=== PATIENT | female | born 1995 | race Caucasian/White ===

== ENCOUNTER 2019-06-14 23:25 | Emergency (ER) | payer OTHER ==
[~2019-06-14] VITALS: Ht 162.6 cm; Wt 61.4 kg
[2019-06-14] MEDS ORDERED: TRI-TAB16 PO (23:31)
[2019-06-15] MEDS ORDERED: KETOROLAC 30 MG/ML VIAL (J1885) IV ONE
[2019-06-15] MEDS ORDERED: NS 1,000 ML IV ONE
[2019-06-15] MEDS ORDERED: ONDANSETRON 4MG/2ML VIAL (J2405) IV ONE
[2019-06-15 00:21] LABS: BASO % 0.2 % (0.0-1.0); HEMOGLOBIN 13.1 g/dl (12.0-15.5); LYMPH % 9.2 % (24.0-44.0); MEAN CORPUSCULAR HEMOGLOBIN 30.8 pg (27.0-33.0); MEAN CORPUSCULAR HGB CONC 34.5 g/dl (32.0-36.5); MEAN CORPUSCULAR VOLUME 89.2 fl (80.0-96.0); MONO # 0.3 10^3/uL (0.0-0.8); NEUTROPHILS # 9.8 10^3/uL (1.5-8.5); NEUTROPHILS % 87.3 % (36.0-66.0); PLATELET COUNT, AUTOMATED 354 10^3/uL (150-450); RED BLOOD COUNT 4.26 10^6/uL (4.00-5.40); WHITE BLOOD COUNT 11.3 10^3/uL (4.0-10.0)
[2019-06-15 00:33] LABS: BLOOD UREA NITROGEN 12 MG/DL (7-18); CALCIUM LEVEL 9.6 MG/DL (8.5-10.1); CARBON DIOXIDE LEVEL 23 MEQ/L (21-32); CHLORIDE LEVEL 102 MEQ/L (98-107); CREATININE FOR GFR 0.86 MG/DL (0.55-1.30); GLOMERULAR FILTRATION RATE > 60.0 (>60); GLUCOSE, FASTING 139 MG/DL (70-100); POTASSIUM SERUM 4.1 MEQ/L (3.5-5.1); SODIUM LEVEL 133 MEQ/L (136-145)
--- NOTE | 2019-06-15 01:17 | REPVR ---
PROCEDURE INFORMATION: Exam: US Pelvis Complete, Transabdominal and US Pelvis, Transvaginal Exam date and time: 06/15/2019 12:56 AM Age: 24 years old Clinical indication: Abdominal pain and pelvic pain; Left lower quadrant; Additional info: Left lower quadrant pain TECHNIQUE: Imaging protocol: Real-time transabdominal and transvaginal pelvic ultrasound (complete) with image documentation. Transvaginal imaging was used for better evaluation of the endometrium and adnexa. COMPARISON: No relevant prior studies available. FINDINGS: Uterus/cervix: Uterus measures 7.1 x 2.8 x 4.7 cm. Endometrial stripe measures 5.1 mm in thickness. No masses. Right adnexa: Right ovary measures 3.0 x 2.0 x 3.1 cm. Echogenic lesion in the right ovary measuring 12.2 x 1.1 x 1.1 cm. Normal vascular flow on color Doppler in the ovary. Left adnexa: Left ovary measures 8.7 x 6.1 x 8.6 cm. Anechoic cystic lesion in the left ovary measuring 8 x 6 x 8 cm. No solid components evident. Normal vascular flow on color Doppler in the ovary. Free fluid: Small fluid in the cul-de-sac. Bladder: Bladder is decompressed. IMPRESSION: 1. Cystic lesion in the left ovary. Recommend routine further imaging (eg. MRI) or surgical evaluation. 2. Echogenic lesion in the right ovary. Possible dermoid or hemorrhagic cyst. Recommend routine follow-up CT or MRI. 3. Unremarkable uterus. Electronically signed by: Roland Sanchez On 06/15/2019 01:16:48 AM
--- NOTE | 2019-06-15 01:17 | REPVR ---
PROCEDURE INFORMATION: Exam: US Retroperitoneal Complete, Kidneys and Bladder. Exam date and time: 06/15/2019 12:55 AM Age: 24 years old Clinical indication: Abdominal pain; Flank; Left; Additional info: Left renal colic TECHNIQUE: Imaging protocol: Real-time ultrasound of the retroperitoneum with image documentation. Complete exam focused on the kidneys and bladder. COMPARISON: No relevant prior studies available. FINDINGS: Right kidney: Right kidney measures 10.4 cm in length. No right hydronephrosis. No masses. Left kidney: Left kidney measures 10.0 cm in length. No left hydronephrosis. No masses. Bladder: Bladder is unremarkable. IMPRESSION: 1. Unremarkable retroperitoneal ultrasound. 2. See also pelvic ultrasound report. Electronically signed by: Roland Sanchez On 06/15/2019 01:17:08 AM
[2019-06-15] MEDS ORDERED: MORPHINE 4 MG/ML 1ML VIAL/SYRINGE (J2270) IV ONE (01:30)
[2019-06-15] MEDS ORDERED: ONDA4TAB6 PO (01:44)
[2019-06-15] MEDS ORDERED: IBUP-1022 PO (01:44)
[2019-06-15] MEDS ORDERED: NORC1TAB7 PO (01:44)
[2019-06-15] MEDS ORDERED: NORCO 5/325MG TABLET (BULK FOR ED) PO ONE (01:45)
[2019-06-15 01:46] VITALS: BP 142/85
--- NOTE | 2019-06-15 15:42 | ED PDOC ---
Post-Departure Follow-Up dr valles faxed formal reprot of pelvic us for fu Ozzie Rayo MD Jun 15, 2019 15:42
== END 2019-06-15 02:02 | disposition home or self-care (01) ==
LOC: M ED 23:25
DX: N83.292 Other ovarian cyst, left side (principal); N83.291 Other ovarian cyst, right side; Z79.3 Long term (current) use of hormonal contraceptives
CPT/HCPCS: 76775; 76830; 76856; 80048; 81001; 84702; 85025; 87086; 93976; 96361; 96374; 96375; 99284; J1885; J2270; J2405

== ENCOUNTER → 2019-06-21 | Outpatient (REF) | payer OTHER ==
[~2019-06-21] MED LIST: IBUP-1022 PO; NORC1TAB7 PO; ONDA4TAB6 PO; TRI-TAB16 PO
[2019-06-21 16:11] LABS: CHLAMYDIA DNA AMPLIFICATION NEGATIVE (NEGATIVE); GC DNA AMPLIFICATION NEGATIVE (NEGATIVE)
== END ==
LOC: M SFHCWAGY 13:39
PROVIDERS: ATTEND Obstetrics & Gynecology
DX: R10.2 Pelvic and perineal pain (principal)

== ENCOUNTER → 2019-08-09 | Outpatient (CLI) | payer OTHER ==
--- NOTE | 2019-08-10 04:03 | REP ---
Clinical: Left ovarian cyst. Comparison: 06/15/2019. Technique: Transabdominal pelvic ultrasound with color Doppler evaluation of the ovaries. Findings: Bladder is normal and measures approximately 10.8 x 10.5 x 6.5 cm. Normal anteverted uterus measures 7.5 x 2.7 x 4.4 cm. Endometrial complex measures 2.8 mm thickness. Right ovary measures 3.4 x 1.4 x 2.5 cm (RI 0.54) and includes 1.2 cm rounded echogenic focus which may represent hemorrhagic cyst or dermoid. Simple appearing left adnexal cyst measures 8.8 x 8.1 x 6.2 cm and may be slightly increased in size from prior examination. New presumed adjacent left ovary measures approximately 1.7 x 0.7 x 2.2 cm (RI 0.56). No pelvic fluid. Impression: 1. Normal uterus. 2. Stable 1.2 cm echogenic focus in the right ovary may represent hemorrhagic cyst or dermoid. 3. Simple left adnexal cyst relatively unchanged when allowing for variation in technique, but possibly slightly increased in size from prior examination.
== END ==
LOC: M WHC 08:05
PROVIDERS: ATTEND Obstetrics & Gynecology
DX: N83.292 Other ovarian cyst, left side (principal); N83.8 Other noninflammatory disorders of ovary, fallopian tube and broad ligament

== ENCOUNTER → 2019-11-18 | Outpatient (CLI) | payer OTHER ==
--- NOTE | 2019-11-28 17:20 | REP ---
PELVIC ULTRASOUND CLINICAL: Follow-up ovarian cyst. TECHNIQUE: Transabdominal pelvic ultrasound followed by transvaginal examination for better evaluation of the endometrium and adnexa with color Doppler evaluation of the ovaries. COMPARISON: 08/09/2019. FINDINGS: Relatively normal anteverted uterus measures 6.2 x 2.8 x 3.8 cm. The endometrial complex measures 3 mm thickness. No discrete uterine or endometrial abnormality identified. Bladder is normal and measures 8.3 x 4.8 x 10.4 cm. The right ovary measures 3.8 x 2.0 x 1.5 cm (RI 0.50) and again includes a 1.2 cm echogenic focus, which may represent small dermoid. A normal left ovary is not visualized and a complex cystic structure in the left adnexa with layering debris is again appreciated and essentially unchanged, currently measuring 8.8 x 6.2 x 9.5 cm (previously measuring 8.8 x 8.1 x 6.2 cm). Small amount of free fluid noted in the posterior cul-de-sac is nonspecific. IMPRESSION: Essentially no change in the right ovarian hyperechoic structure and left adnexa, complex cyst. MTDD
== END ==
LOC: M WHC 09:02
PROVIDERS: ATTEND Nurse Practitioner Women's Health
DX: Z87.42 Personal history of other diseases of the female genital tract (principal)

== ENCOUNTER → 2020-01-17 | Outpatient (REF) | payer OTHER ==
[2020-01-20 15:09] LABS: HE4 36.1 pmol/L (0.0-61.2)
== END ==
LOC: M PLALAB 15:36
PROVIDERS: ATTEND Obstetrics & Gynecology
DX: N83.202 Unspecified ovarian cyst, left side (principal)

== ENCOUNTER → 2020-01-31 | Outpatient (CLI) | payer OTHER ==
--- NOTE | 2020-01-31 08:02 | REP ---
INDICATION: [id number] OVARIAN CYST,LT COMPARISON: 11/18/2019 TECHNIQUE: Transabdominal pelvic ultrasound followed by transvaginal examination for better evaluation of the endometrium and adnexa with color Doppler evaluation of the ovaries. FINDINGS: Bladder is incompletely distended Normal anteverted uterus measures 6.2 x 2.7 x 3.6 cm. The endometrial complex measures 3.0 mm thickness. No discrete uterine or endometrial abnormalities are appreciated. Right ovary measures 3.7 x 2.4 x 1.5 cm (RI 0.47) and includes 1.2 x 1.2 x 1.0 cm hyperechoic focus unchanged from prior examination and possibly reflecting teratoma. Left ovary is not identifiable and the complex cystic lesion with internal debris is unchanged measuring approximately 9.8 x 9.0 x 6.6 cm. No pelvic free fluid identified. IMPRESSION: 1. Large left adnexal complex cyst unchanged. Differential diagnosis includes but is not limited to cystadenoma and abnormal physiologic cyst. Hyperechoic focus within the right ovary unchanged and may represent a teratoma. Consider pelvic MRI for further investigation. <Electronically signed by Tejinder Pereira > 01/31/20 [id number]
== END ==
LOC: M WHC 06:27
PROVIDERS: ATTEND Obstetrics & Gynecology
DX: N83.202 Unspecified ovarian cyst, left side (principal)

== ENCOUNTER → 2020-02-09 | Outpatient (CLI) | payer OTHER ==
[~2020-02-09] MED LIST changes: +COLA100C5 PO; +IBUP1TAB7 PO; +MULTCAP PO; +PERC5TAB12 PO; +VITA-243 PO
== END ==
LOC: M LABSMTC 14:41
PROVIDERS: ATTEND Anesthesiology
DX: Z01.812 Encounter for preprocedural laboratory examination (principal); Z20.828 Contact with and (suspected) exposure to other viral communicable diseases

== ENCOUNTER 2020-02-14 08:33 | Day surgery (SDC) | payer OTHER ==
[~2020-02-14] VITALS: Ht 165.1 cm; Wt 65.2 kg
[~2020-02-14 08:33] MED LIST changes: -COLA100C5 PO; -IBUP1TAB7 PO; +LIDOCAINE 2% 100MG/5ML SDV (FOR ANES.) As Ordered ONE; +LR 1,000 ML IV ONE; +MIDAZOLAM INJ 2MG/2ML VIAL (J2250 PER 1MG) As Ordered ONE; -PERC5TAB12 PO; +ROCURONIUM BROMIDE 50 MG/5 ML VIAL As Ordered ONE; +fentaNYL 250 MCG/5 ML INJECTION (J3010) As Ordered ONE; +propofoL 200 MG/20 ML VIAL As Ordered ONE
[2020-02-14 09:23] LABS: HEMATOCRIT 40.7 % (36.0-47.0); HEMOGLOBIN 13.5 g/dl (12.0-15.5); MEAN CORPUSCULAR VOLUME 93.1 fl (80.0-96.0); RED BLOOD COUNT 4.37 10^6/uL (4.00-5.40); WHITE BLOOD COUNT 9.9 10^3/uL (4.0-10.0)
[2020-02-14 09:24] LABS: MEAN CORPUSCULAR HEMOGLOBIN 30.9 pg (27.0-33.0); MEAN CORPUSCULAR HGB CONC 33.2 g/dl (32.0-36.5); PLATELET COUNT, AUTOMATED 390 10^3/uL (150-450)
[2020-02-14 09:41] LABS: HCG, SERUM QUALITATIVE NEGATIVE (NEGATIVE)
[2020-02-14] MEDS ORDERED: BUPIVACAINE HCL 0.25% 30ML VIAL As Ordered ONE (09:49)
[2020-02-14] MEDS ORDERED: dexameTHASONE 4 MG/ML 1ML VIAL (J1100 PER 1MG) As Ordered ONE (10:12)
[2020-02-14] MEDS ORDERED: METOCLOPRAMIDE INJ 10MG/2ML VIAL (J2765 PER 1) As Ordered ONE (10:25)
[2020-02-14] MEDS ORDERED: ONDANSETRON 4MG/2ML VIAL As Ordered ONE (10:25)
[2020-02-14] MEDS ORDERED: KETOROLAC 60MG 2ML VIAL As Ordered ONE (10:25)
[2020-02-14] MEDS ORDERED: HYDROmorphone HCL 2 MG/ML 1ML VIAL (J1170) As Ordered ONE (10:26)
[2020-02-14] MEDS ORDERED: ACETAMINOPHEN 1000MG 100ML IV BTL (OFIRMEV) (J0131 PER 10MG) As Ordered ONE (10:26)
[2020-02-14] MEDS ORDERED: ROCURONIUM BROMIDE 50 MG/5 ML VIAL As Ordered ONE (11:36)
[2020-02-14] MEDS ORDERED: oxyCODONE 5MG TAB PO PRN (13:15)
[2020-02-14] MEDS ORDERED: LR 1,000 ML IV SCH ×2 (13:15)
[2020-02-14] MEDS ORDERED: ONDANSETRON 4MG/2ML VIAL IV PRN (13:15)
[2020-02-14] MEDS ORDERED: fentaNYL 100 MCG/2 ML INJECTION (J3010) IV PRN (13:15)
--- NOTE | 2020-02-14 13:43 | ROOPDOC ---
[facility] Report Of Operation Report of Operation DATE OF PROCEDURE: 02/14/2020 PREPROCEDURE DIAGNOSES: Persistent large left adnexal cyst, complex POSTPROCEDURE DIAGNOSES: Large 10 cm left ovarian cyst, right 3 cm ovarian cyst PROCEDURE: Robotic-assisted laparoscopic left ovarian cystectomy and right ovarian cystectomy SURGEON: Napoleon Waters D.O. FACOG PREFABRICATOR: Karolyn Anna ANESTHESIA: General endotracheal. ESTIMATED BLOOD LOSS: Approximately 10 mL. FLUIDS REPLACED: 1150 mL LR URINE OUTPUT: 200 mL COMPLICATIONS: None. FINDINGS: Left ovarian cyst was well demarcated, well-circumscribed, mobile and approximately 10 cm in greatest dimension. Right ovarian cyst was well demarcated, well-circumscribed, mobile and approximately 3 cm in greatest dimension. Uterus was approximately 8 centimeters in greatest dimension. PREOPERATIVE ANTIBIOTIC PROPHYLAXIS: None indicated SPECIMEN(S): 1. Left ovarian cyst wall. 2. Right ovarian cyst wall DESCRIPTION OF PROCEDURE: The patient was counseled, consented on the respective benefits, indications, alternatives of procedure. Informed consent was obtained. She was taken to the operating room with an IV running. She was placed on the operating table in dorsal supine position. Gen. anesthesia was administered and the airway was secured without any difficulty. She was placed in the low lithotomy position. . She was prepared and draped in the normal sterile fashion. A time out was performed per protocol. A Grissom catheter was placed under sterile conditions. A sterile speculum was placed resulting in good visualization of the cervix. A single-tooth tenaculum was used to grasp the anterior lip cervix. The cervix was sequentially dilated with Johnny dilators. A ZUMI uterine manipulator was placed without any difficulty. The single-tooth tenaculum was removed, as well as the speculum. A sterile glove switch was performed. Attention was turned to the abdomen. A 5mm incision was made in the umbilicus, and through this incision a Veress needle was inserted into the intraperitoneal cavity. Intraperitoneal placement was confirmed with ease of flow of normal saline, positive drop test, no return on aspiration, and an opening pressure of less than 10 mmHg upon initial insufflation. The abdomen was insufflated with 2 L of gas. The Veress needle was removed. Through this incision, the robotic trochar/cannula was inserted into the intraperitoneal cavity under direct visualization. No incidental bleeding nor injury was noted. Patient was placed in 30 Trendelenburg. The right and left trocars/cannulas were placed on both the right and left side through 8 mm incisions, guided by laparoscopic visualization. No incidental bleeding nor injury was noted. The robot was docked in typical fashion. The instruments were inserted, guided by laparoscopic visualization. My attention was turned to the robotic console. The left ovary was noted to be mobile. The interface between normal ovarian cortex and cystic wall was delineated. The monopolar milton were used to create an incision over the cortical surface of the ovary. The underlying cystic wall was identified. Usi ng both blunt dissection and electrocautery, the ovarian cyst was detached from the ovary intact. The ovarian cyst was decompressed through a small incision and use of the suction real estate associate to remove the cystic fluid. The mass was then placed into a specimen bag within the peritoneal cavity. The remaining left ovarian cortex was reapproximated with 2-0 V lock suture. Excellent hemostasis was noted. Attention was turned to the right ovary. The right ovary exhibited a cystic mass, greatest dimension, 3-4 cm. This was also smooth wall, well- circumscribed, mobile mass. The interface between the cortical surface and the cyst was delineated. An incision along the interface was made with monopolar milton. The ovarian cyst was then dissected off with both blunt and electrocautery dissection. The removed right cystic wall was taken out through the 8 mm administrative assistant front desk port. Incidental rupture did occur. The area along the right ovary that contained the cyst was hemostatic, and not in need of any reapproximation. Nasrin was placed over the right and left ovary to ensure hemostasis. Through the accessory administrative assistant front desk port, the fascia was extended with Barbra forceps. The specimen bag was brought through this incision along with the specimen/left ovarian cystic wall. The fascia at this incision was closed with 0 Vicryl using the Jhonny-Lou technique. The instruments were removed from the abdomen and the robot was un-docked. The gas was released from the abdomen and the patient was taken out of Trendelenbu rg. The da Misha cannulas were removed. The skin incisions were closed with 4-0 Monocryl in subcuticular fashion. Sponge, needle and instrument counts were correct per protocol. The patient tolerated the entire procedure very well. The Grissom catheter in the ZUMI uterine manipulator were removed . She was transferred to the PACU in good and stable condition. Napoleon R. DO PADMAJA Waters JONATHAN R. DO Feb 14, 2020 13:43
[2020-02-14] MEDS ORDERED: IBUP1TAB7 PO (13:44)
[2020-02-14] MEDS ORDERED: PERC5TAB12 PO (13:45)
[2020-02-14] MEDS ORDERED: COLA100C5 PO (13:48)
[2020-02-14 15:25] VITALS: BP 121/73
== END 2020-02-14 15:40 | disposition home or self-care (01) ==
LOC: M SDC 08:33
PROVIDERS: ATTEND Obstetrics & Gynecology
DX: D27.1 Benign neoplasm of left ovary (principal); N83.01 Follicular cyst of right ovary; Z79.3 Long term (current) use of hormonal contraceptives
CPT/HCPCS: 36415; 58662; 84703; 85027; 86850; 86900; 86901; 88305; J0131; J1100; J1170; J1885; J2250; J2405; J2765; J3010; S2900

== ENCOUNTER → 2021-01-12 | Outpatient (REF) | payer OTHER, BC ==
[~2021-01-12] MED LIST changes: +COLA100C5 PO; +IBUP1TAB7 PO; -LIDOCAINE 2% 100MG/5ML SDV (FOR ANES.) As Ordered ONE; -LR 1,000 ML IV ONE; -MIDAZOLAM INJ 2MG/2ML VIAL (J2250 PER 1MG) As Ordered ONE; +PERC5TAB12 PO; -ROCURONIUM BROMIDE 50 MG/5 ML VIAL As Ordered ONE; -fentaNYL 250 MCG/5 ML INJECTION (J3010) As Ordered ONE; -propofoL 200 MG/20 ML VIAL As Ordered ONE
[2021-01-12 19:33] LABS: GC DNA AMPLIFICATION NEGATIVE (NEGATIVE)
== END ==
LOC: M SFHCWAGY 16:51
PROVIDERS: ATTEND Obstetrics & Gynecology
DX: Z12.4 Encounter for screening for malignant neoplasm of cervix (principal)
CPT/HCPCS: 87491; 87591; 87624; 87661; G0123

== ENCOUNTER → 2022-06-18 | Outpatient (REF) | payer OTHER | LOC: M SFHCWAGY 13:11 | PROVIDERS: ATTEND Obstetrics & Gynecology | DX: Z12.4 Encounter for screening for malignant neoplasm of cervix (principal) | CPT/HCPCS: 87624; G0123 ==

== ENCOUNTER → 2022-06-24 | Outpatient (REF) | payer OTHER ==
[2022-06-25 12:45] LABS: APPEARANCE, URINE HAZY (CLEAR); BACTERIA, URINE AUTO 1+ (NEGATIVE); BILIRUBIN, URINE AUTO NEGATIVE (NEGATIVE); BLOOD, URINE BLOOD 2+ (NEGATIVE); COLOR, URINE YELLOW (YELLOW); GLUCOSE, URINE (UA) AUTO NEGATIVE (NEGATIVE); KETONE, URINE AUTO NEGATIVE (NEGATIVE); LEUKOCYTE ESTERASE, URINE AUTO 3+ (NEGATIVE); NITRITE, URINE AUTO NEGATIVE (NEGATIVE); PROTEIN, URINE AUTO NEGATIVE (NEGATIVE); RBC, URINE AUTO 7 /HPF (0-3); SPECIFIC GRAVITY URINE AUTO 1.003 (1.002-1.035); SQUAMOUS EPITHELIAL CELL UR AU 0 /HPF (0-6); UROBILINOGEN, URINE AUTO 0.2 mg/dL (0.0-2.0); WBC, URINE AUTO 32 /HPF (0-3)
== END ==
LOC: M LAB REF 11:13
PROVIDERS: ATTEND Physician Assistant Medical
DX: N39.0 Urinary tract infection, site not specified (principal)

== ENCOUNTER → 2022-07-10 | Outpatient (CLI) | payer OTHER | LOC: M WHC 13:37 | PROVIDERS: ATTEND Obstetrics & Gynecology | DX: R10.2 Pelvic and perineal pain (principal) ==

== ENCOUNTER → 2023-09-10 | Outpatient (REF) | payer OTHER ==
[~2023-09-10] MED LIST changes: +ONDA-282 PO; -ONDA4TAB6 PO
== END ==
LOC: M SFHCWAGY 17:31
PROVIDERS: ATTEND Obstetrics & Gynecology
DX: Z12.4 Encounter for screening for malignant neoplasm of cervix (principal); R87.615 Unsatisfactory cytologic smear of cervix

== ENCOUNTER → 2023-09-10 | Outpatient (CLI) | payer OTHER ==
[2023-09-10 19:18] LABS: HEMATOCRIT 37.1 % (36.0-47.0); HEMOGLOBIN 12.4 g/dl (12.0-15.5); MEAN CORPUSCULAR HEMOGLOBIN 31.3 pg (27.0-33.0); MEAN CORPUSCULAR HGB CONC 33.4 g/dl (32.0-36.5); MEAN CORPUSCULAR VOLUME 93.7 fl (80.0-96.0); PLATELET COUNT, AUTOMATED 380 10^3/uL (150-450); RED BLOOD COUNT 3.96 10^6/uL (4.00-5.40); WHITE BLOOD COUNT 9.9 10^3/uL (4.0-10.0)
== END ==
LOC: M PLALAB 14:47
PROVIDERS: ATTEND Obstetrics & Gynecology
DX: R53.83 Other fatigue (principal)

== ENCOUNTER → 2023-10-16 | Outpatient (CLI) | payer OTHER | LOC: M WHC 08:44 | PROVIDERS: ATTEND Obstetrics & Gynecology | DX: N88.8 Other specified noninflammatory disorders of cervix uteri (principal); Z87.42 Personal history of other diseases of the female genital tract ==

== ENCOUNTER → 2024-08-02 | Outpatient (REF) | payer OTHER ==
[2024-08-02 21:35] LABS: APPEARANCE, URINE HAZY (CLEAR); BACTERIA, URINE AUTO 1+ (NEGATIVE); BILIRUBIN, URINE AUTO NEGATIVE (NEGATIVE); BLOOD, URINE BLOOD 2+ (NEGATIVE); COLOR, URINE YELLOW (YELLOW); GLUCOSE, URINE (UA) AUTO NEGATIVE (NEGATIVE); KETONE, URINE AUTO 1+ mg/dL (NEGATIVE); LEUKOCYTE ESTERASE, URINE AUTO 2+ (NEGATIVE); MUCUS, URINE SMALL (NEGATIVE); NITRITE, URINE AUTO NEGATIVE (NEGATIVE); PROTEIN, URINE AUTO 2+ mg/dL (NEGATIVE); RBC, URINE AUTO 60 /HPF (0-3); SPECIFIC GRAVITY URINE AUTO 1.026 (1.002-1.035); SQUAMOUS EPITHELIAL CELL UR AU 2 /HPF (0-6); UROBILINOGEN, URINE AUTO 0.2 mg/dL (0.0-2.0); WBC, URINE AUTO TNTC /HPF (0-3)
== END ==
LOC: M LAB REF 21:13
PROVIDERS: ATTEND Physician Assistant Medical
DX: N39.0 Urinary tract infection, site not specified (principal)

== ENCOUNTER → 2025-01-19 | Outpatient (REF) | payer OTHER ==
[~2025-01-19] MED LIST changes: -IBUP-1022 PO; +IBUP600T42 PO
[2025-01-21 14:17] LABS: HPV APTIMA Not Detected (Not Detected)
== END ==
LOC: M SFHCWAGY 13:18
PROVIDERS: ATTEND Obstetrics & Gynecology
DX: Z12.4 Encounter for screening for malignant neoplasm of cervix (principal); R87.610 Atypical squamous cells of undetermined significance on cytologic smear of cervix (ASC-US)
CPT/HCPCS: 87624; G0123

== ENCOUNTER → 2025-03-14 | Outpatient (CLI) | payer OTHER | LOC: M WHC 10:27 | PROVIDERS: ATTEND Obstetrics & Gynecology | DX: Z87.42 Personal history of other diseases of the female genital tract (principal) ==